=== PATIENT | female | born 1980 | race Caucasian/White ===

== ENCOUNTER → 2016-07-08 | Outpatient (CLI) | payer BC ==
[~2016-07-08] MED LIST: DOCU-94 PO; MTR600X PO; OXYC-57 PO; PRENTAB26 PO
[2016-07-08 11:28] LABS: HEMATOCRIT 34.9 % (37-47)
[2016-07-08 11:40] LABS: URINE APPEARANCE CLEAR (CLEAR); URINE BILIRUBIN NEG (NEG); URINE COLOR YELLOW; URINE EPITHELIAL CELL AUTO >30 /lpf (0-5); URINE NITRITE NEG (NEG); URINE PH 5.5 (4.5-7.5); URINE SPECIFIC GRAVITY 1.011 (1.000-1.030); UROBILINOGEN NEG (NEG)
[2016-07-08 11:42] LABS: MANUAL MICROSCOPIC REQUIRED? NO; REVIEW REQ? NO
[2016-07-08 12:11] LABS: GTGD 50 Grams
== END | disposition home or self-care (01) ==
LOC: C.LAB1850 09:09
PROVIDERS: ATTEND Obstetrics & Gynecology
DX: O44.03 Complete placenta previa NOS or without hemorrhage, third trimester (principal)

== ENCOUNTER 2016-08-06 14:39 | Outpatient (CLI) | payer BC ==
[~2016-08-06] VITALS: Ht 160 cm; Wt 99.0 kg
[~2016-08-06 14:39] MED LIST changes: -DOCU-94 PO; -MTR600X PO; -OXYC-57 PO
[2016-08-06 16:06] LABS: HEMATOCRIT 36.2 % (37-47); MEAN CELL VOLUME 88.7 fL (80-100); MEAN CORPUSCULAR HEMOGLOBIN 30.4 pg (25-34); MEAN CORPUSCULAR HGB CONC 34.3 g/dl (32-36); MEAN PLATELET VOLUME 9.3 fL (7.4-10.4); PLATELET COUNT 233 K/uL (130-400); RED BLOOD COUNT 4.08 M/uL (4.2-5.4); WHITE BLOOD COUNT 13.44 K/uL (4.8-10.8)
[2016-08-06] MEDS ORDERED: BETAMETH SOD PHOS/ACETATE IA 6 MG/ML IM SCH (16:15)
--- NOTE | 2016-08-06 16:23 | Discharge Instructions ---
Discharge Instructions Date of Service Aug 06, 2016. Admission Reason for Admission: Comp Previa With Bleeding 33 Weeks Discharge Discharge Diagnosis / Problem: Placenta previa Discharge Goals Goal(s): Continuing OB care Activity Recommendations Activity Limitations: per Instructions/Follow-up section . Instructions / Follow-Up Instructions / Follow-Up ACTIVITY RECOMMENDATIONS: See Labor Sheet. SPECIAL CARE INSTRUCTIONS: Call Doctor if: * Regular contractions every 5 minutes or greater than 6 contractions in one hour. * Bleeding * Water breaks or is leaking * Decreased movement * Fever >100.4 degrees F * Pain not relieved by routine measures or pain medication ordered. FOLLOW UP VISIT: Return to Labor and Delivery on August 08 1599 for second steroid injection. . Follow-up Visit with: When: Current Hospital Diet Patient's current hospital diet: Discharge Diet Recommended Diet: Regular OB Diet Pending Studies Studies pending at discharge: no Medical Emergencies . Who to Call and When: Medical Emergencies: If at any time you feel your situation is an emergency, please call 911 immediately. . Non-Emergent Contact Non-Emergency issues call your: Hepatology Physician . . "Provider Documentation" section prepared by Wood Roach. VTE Core Measure Inpt VTE Proph given/why not?: Treatment not indicated
[2016-08-06] MEDS: LACTATED RINGER'S 1000ML 1,000 ML IV SCH ×2 (16:45→19:25)
[2016-08-06 19:00] VITALS: Ht 160 cm; Wt 99.0 kg
[2016-09-09] MEDS ORDERED: DOCU-94 PO (12:17)
[2016-09-12] MEDS ORDERED: MTR600X PO (07:44)
[2016-09-12] MEDS ORDERED: OXYC-57 PO (07:44)
== END 2016-08-06 19:31 | disposition home or self-care (01) ==
LOC: C.LD 14:39 → C.OPB 14:39
PROVIDERS: ATTEND Obstetrics & Gynecology
DX: O44.03 Complete placenta previa NOS or without hemorrhage, third trimester (principal); Z3A.33 33 weeks gestation of pregnancy

== ENCOUNTER 2016-08-07 16:31 | Outpatient (CLI) | payer BC ==
[2016-08-07] MEDS ORDERED: NURSING VERBAL MED ORDER ONE (16:45)
[2016-08-07] MEDS ORDERED: BETAMETH SOD PHOS/ACETATE IA 6 MG/ML IM ONE (16:45)
--- NOTE | 2016-08-10 11:19 | EDITING REQUIRED CODING QUERY ---
DIAGNOSIS NEEDED To promote full compliance with coding requirements relating to patient care, physician participation is requested in all cases of supervisor small appliance assembly uncertainty. Please assist us with the question(s) below: Coding Question: The patient received care in labor and delivery on 08/07/16 as noted within the record. Please document the diagnosis that is being addressed by the medication/treatment. Provider Response: DIAGNOSIS: Complete placenta previa with bleeding WEEKS GESTATION: 32weeks gestation Thank you for your assistance, Sadie Malcolm - Fire Patroller
[2016-09-09] MEDS ORDERED: DOCU-94 PO (12:17)
== END 2016-08-07 16:50 | disposition home or self-care (01) ==
LOC: C.OPB 16:31 → C.LD 16:32 → C.OPB 16:50
PROVIDERS: ATTEND Obstetrics & Gynecology
DX: O44.13 Complete placenta previa with hemorrhage, third trimester (principal); Z3A.32 32 weeks gestation of pregnancy

== ENCOUNTER → 2016-09-02 | Outpatient (CLI) | payer BC ==
[~2016-09-02] MED LIST changes: +DOCU-94 PO; +MTR600X PO; +OXYC-57 PO
== END | disposition home or self-care (01) ==
LOC: C.LABSPEC 17:35
PROVIDERS: ATTEND Obstetrics & Gynecology
DX: Z34.83 Encounter for supervision of other normal pregnancy, third trimester (principal)

== ENCOUNTER 2016-09-09 13:04 | Inpatient (IN) | payer BC ==
[2016-09-09] VITALS (10 sets, daily range): BP systolic 115–133; BP diastolic 64–79; PULSE 74–83; TEMP 36.6–37.2; O2SAT 98–100; Ht 160 cm; Wt 101.4 kg
[~2016-09-09] VITALS: Ht 160 cm; Wt 101.4 kg
--- NOTE | 2016-09-09 12:47 | PAT Medication Instructions ---
Service Date September 09, 2016. Current Home Medication List Docusate Sodium (Colace), 1 CAP PO HS Multivit/Min/Iron/Fol Ac/Pren ( Vitamin), 1 TAB PO HS Medication Instructions For Your Scheduled Surgery - Take the following medications as scheduled the night before surgery: Docusate Sodium (Colace), 1 CAP PO HS Multivit/Min/Iron/Fol Ac/Pren ( Vitamin), 1 TAB PO HS Nothing to eat or drink after midnight If you have any questions please call us at [phone] or [phone] or [phone]
[2016-09-09 13:01] LABS: BASO % 0.1 %; BASO ABS # 0.01 K/uL (0-0.2); COMPLETE YES; EOS % 0.5 %; HEMATOCRIT 35.5 % (37-47); IG% 0.3 %; LYMPH % 16.8 %; LYMPH ABS # 1.73 K/uL (1.2-3.4); MEAN CELL VOLUME 89.9 fL (80-100); MEAN CORPUSCULAR HEMOGLOBIN 30.9 pg (25-34); MEAN CORPUSCULAR HGB CONC 34.4 g/dl (32-36); MEAN PLATELET VOLUME 9.2 fL (7.4-10.4); MONO % 8.4 %; NEUT % 73.9 %; PLATELET COUNT 228 K/uL (130-400); RED BLOOD COUNT 3.95 M/uL (4.2-5.4); WHITE BLOOD COUNT 10.32 K/uL (4.8-10.8)
[~2016-09-09 13:04] MED LIST changes: +CEFAZOLIN IV 2,000 MG in DEXTROSE 5% 50ML 50 ML IV SCH; -MTR600X PO; -OXYC-57 PO
[2016-09-09 13:09] LABS: URINE APPEARANCE CLEAR (CLEAR); URINE BILIRUBIN NEG (NEG); URINE COLOR YELLOW; URINE EPITHELIAL CELL AUTO >30 /lpf (0-5); URINE NITRITE NEG (NEG); URINE SPECIFIC GRAVITY 1.015 (1.000-1.030); UROBILINOGEN NEG (NEG)
[2016-09-09 13:19] LABS: MANUAL MICROSCOPIC REQUIRED? NO; REVIEW REQ? NO
[2016-09-09] MEDS ORDERED: LACTATED RINGER'S 1000ML 1,000 ML IV SCH ×2 (13:25→15:14)
[2016-09-09] MEDS ORDERED: CITRIC ACID/SODIUM CITRATE 15 ML UDC PO SCH (13:30)
[2016-09-09] MEDS ORDERED: METHYLERGONOVINE MALEATE 0.2 MG/ML AMP ONE (13:43)
[2016-09-09] MEDS ORDERED: CARBOPROST TROMETHAMINE 250 MCG/ML AMP ONE (13:43)
[2016-09-09] MEDS ORDERED: OXYTOCIN INJ 10 UNITS/ML VIAL ONE ×4 (13:43→14:51)
[2016-09-09] MEDS ORDERED: MoRPHine SULFATE PF 1 MG/ML 10 ML AMP/VIAL ONE (14:05)
[2016-09-09] MEDS ORDERED: FENTANYL CITRATE INJ 50 MCG/1 ML 2 ML VIAL ONE (14:05)
--- NOTE | 2016-09-09 14:17 | HISTORY & PHYSICAL EXAMINATION ---
DATE OF ADMISSION: 09/09/2016 PREOPERATIVE DIAGNOSES: 1. Intrauterine at 37 and 4/7 weeks. 2. Complete posterior placenta previa. 3. Vaginal bleeding. HISTORY OF PRESENT ILLNESS: The patient is a 35-year-old 2, para 1-0-0-1 whose EDC is 09/26/2016. She was discovered to have a complete placenta previa at 20 weeks and this has persisted throughout her and was confirmed on the 36-week ultrasound. The patient had a scheduled delivery for tomorrow, but when she was down in the preoperative anesthesia area she went to the bathroom and had a large gush of blood coloring the toilet red. She notes no pain. She notes no problems with the baby. She feels overall very well. The has been otherwise uncomplicated. On evaluation, the patient has gordo red vaginal bleeding. It is not active when looking at the cervix, but it covers the perineum, her underwear and the toilet. The baby is reassuring and I have recommended that we proceed with delivery. She is agreeable. 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 This is her second . She denies abnormal Pap smears or sexually transmitted diseases. ALLERGIES: No known drug allergies. MEDICATIONS: vitamins. PAST MEDICAL HISTORY: She is healthy, denying thyroid disease, asthma, heart disease, heart murmur, diabetes, kidney or liver problems. She has had the chickenpox and shingles. PAST SURGICAL HISTORY: [place] teeth removal. SOCIAL HISTORY: The patient denies tobacco, alcohol or drugs. Lives with her spouse and son. PHYSICAL EXAMINATION: GENERAL: This is a well-developed, well-nourished white female in no acute distress who is a little bit upset. VITAL SIGNS: Afebrile, vital signs stable. ABDOMEN: Soft, gravid and nontender. EXTREMITIES: Show trace edema. PELVIC EXAMINATION: On sterile speculum exam, there is some bright red blood and mucus mixed in the vaginal vault. The perineum is covered with blood. I asked the patient to cough and I saw no obvious gushing blood from the cervix. The cervix appears visually maybe 1 cm dilated with some length. External monitor shows the baby to be in the 100-125 with moderate variability, accels to the 160s, no decels. Tocodynamometer shows irritability. LABORATORY DATA: Blood type is A negative, antibody negative, rubella immune, RPR nonreactive, hepatitis B negative, HIV negative, chlamydia and gonorrhea negative. Glucose test x2 negative, GBS negative. ASSESSMENT: The patient is a 35-year-old white female 2, para 1-0-0-1 at 37 and 4/7 weeks with known complete posterior placenta previa confirmed on ultrasound at 36 weeks. She has had a bright red gush of bleeding that seemed significant enough that she came up here, her underwear showed a large plum-sized spot of bright red blood. On sterile speculum exam the perineum is covered with blood and there is blood in the vault, although there is no active bleeding from the cervix noted right now. heart tones are category 1. I have recommended that we proceed with delivery as we were going to do so yesterday. Her labs are already back. Her H\T\H is stable. Her platelets are 288,000 and she is being typed and crossed for 2 units. The risks of the procedure were discussed with the patient including the risks of anesthesia, bleeding requiring transfusion, infection, poor wound healing, damage to surrounding structures including bowel, bladder, vessels, nerves and ureters with need for further surgery, hospitalization or intervention. We also discussed the possibility that if we could not get her bleeding to stop that she may require hysterectomy. The patient understands the risk of this and agrees to proceeding with surgery now. She has had nothing to eat or drink since 9:00. Anesthesia, the main OR, pediatrics are all aware. ELIDA
[2016-09-09] MEDS ORDERED: PHENYLEPHRINE 100MCG/ML 5ML SYR ONE (14:44)
[2016-09-09] MEDS ORDERED: EpHEDrine SULFATE 50MG/5ML SYR ONE (14:44)
[2016-09-09] MEDS ORDERED: ONDANSETRON INJ 2 MG/ML 2 ML VIAL ONE (14:44)
[2016-09-09] MEDS ORDERED: DiphenhydrAMINE HCL 50 MG/ML VIAL ONE (14:51)
[2016-09-09] MEDS ORDERED: NALOXONE HCL INJ 1 MG in SODIUM CHLORIDE 0.9% 1000ML 1,000 ML IV PRN ×4 (15:01)
[2016-09-09] MEDS ORDERED: LACTATED RINGER'S 1000ML 500 ML IV PRN (15:01)
[2016-09-09] MEDS ORDERED: NALOXONE HCL INJ 0.08 MG in SYRINGE 1.8 ML IV PRN (15:01)
[2016-09-09] MEDS ORDERED: SODIUM CHLORIDE 0.9% 1000ML 1,000 ML IV PRN (15:01)
[2016-09-09] MEDS ORDERED: OXYTOCIN INJ 20 UNITS in LACTATED RINGER'S 1000ML 1,000 ML IV SCH (15:14)
[2016-09-09] MEDS ORDERED: DC PCA PRN (15:15)
[2016-09-09] MEDS ORDERED: SUPERCREAM 0.870 % 15GM JAR EXT PRN (15:15)
[2016-09-09] MEDS ORDERED: HYDROCORTISONE ACETATE 25 MG SUPP PR PRN (15:15)
[2016-09-09] MEDS ORDERED: NO NARCOTICS OR SEDATIVES SCH (15:15)
[2016-09-09] MEDS ORDERED: LANOLIN OINT EXT PRN ×2 (15:15)
[2016-09-09] MEDS ORDERED: PROMETHAZINE HCL INJ 25 MG in SODIUM CHLORIDE 0.9% 50ML 50 ML IV PRN (15:15)
[2016-09-09] MEDS ORDERED: BENZOCAINE 20% AER SPR 82.5 GM CAN EXT PRN (15:15)
[2016-09-09] MEDS ORDERED: DIPHTHERIA/TETANUS/PERTUSSIS 0.5 ML SYR/VIAL IM. ONE (15:15)
[2016-09-09] MEDS ORDERED: KETOROLAC TROMETHAMINE 30 MG/ML VIAL IV. PRN (15:15)
[2016-09-09] MEDS ORDERED: NALOXONE HCL 0.4 MG/1 ML VIAL/CARP IV PRN (15:15)
[2016-09-09] MEDS ORDERED: EpHEDrine SULFATE INJ 50 MG/ML AMP IV PRN (15:15)
[2016-09-09] MEDS ORDERED: ONDANSETRON INJ 2 MG/ML 2 ML VIAL IV PRN (15:15)
[2016-09-09] MEDS ORDERED: NALBUPHINE HCL INJ 10 MG/ML AMP IV PRN (15:15)
[2016-09-09] MEDS ORDERED: DiphenhydrAMINE HCL 50 MG/ML VIAL IV PRN (15:15)
[2016-09-09] MEDS ORDERED: MoRPHine SULFATE PF 1 MG/ML 10 ML AMP/VIAL EPI PRN (15:15)
--- NOTE | 2016-09-09 15:24 | [facility] Post Operative Brief Note ---
Immediate Operative Summary Operative Date September 09, 2016. Pre-Operative Diagnosis Posterior Complete Previa IUP at 37 4/7 vaginal bleeding Post-Operative Diagnosis same as pre-operative Procedure(s) Performed Primary Low Transverse Caesarean Section Surgeon Dr. Cammie Koch Channel Executive Surgeon(s) Dr. Lalita Musa Estimated Blood Loss 800ml Fluids (cc crystalloids) 2100cc Specimens SPECIMEN: A: placenta for exam Drains rojas Anesthesia spinal Complication(s) None Disposition Recovery Room / PACU
--- NOTE | 2016-09-09 16:11 | Anesthesiology Progress Note ---
Anesthesia Post Op Note Date & Time September 09, 2016 at 16:10 Vital Signs Pain Intensity: 0 Vital Signs Past 12 Hours Date Time Temp Pulse Resp B/P Pulse Ox O2 Delivery O2 Flow Rate FiO2 09/09/16 16:00 36.6 71 20 136/84 100 Nasal Cannula 2 09/09/16 15:50 36.6 71 20 133/73 100 Nasal Cannula 2 09/09/16 15:40 36.6 64 20 128/76 100 Nasal Cannula 2 09/09/16 15:30 64 20 121/72 100 Nasal Cannula 2 09/09/16 15:20 72 20 112/80 100 Nasal Cannula 2 09/09/16 15:14 36.2 68 20 129/69 100 Nasal Cannula 2 Notes Mental Status: alert / awake / arousable, participated in evaluation Pt Amnestic to Procedure: No Nausea / Vomiting: adequately controlled Pain: adequately controlled Airway Patency, RR, SpO2: stable & adequate BP & HR: stable & adequate Hydration State: stable & adequate Neuraxial Anesthesia: was administered, sensory block is resolving Anesthetic Complications: no major complications apparent
[2016-09-09] MEDS: SIMETHICONE 80 MG CHEW PO SCH ×2 (17:28→19:30)
[2016-09-09] MEDS: DOCUSATE SODIUM 100 MG CAP PO SCH (19:30)
[2016-09-10] VITALS (13 sets, daily range): BP systolic 100–117; BP diastolic 52–73; PULSE 64–79; TEMP 36.8–37.2; O2SAT 97–100
[2016-09-10 06:50] LABS: BASO % 0.1 %; BASO ABS # 0.01 K/uL (0-0.2); COMPLETE YES; EOS % 0.2 %; HEMATOCRIT 32.2 % (37-47); IG% 0.2 %; LYMPH % 10.2 %; LYMPH ABS # 1.34 K/uL (1.2-3.4); MEAN CELL VOLUME 89.7 fL (80-100); MEAN CORPUSCULAR HEMOGLOBIN 30.6 pg (25-34); MEAN CORPUSCULAR HGB CONC 34.2 g/dl (32-36); MONO % 9.6 %; NEUT % 79.7 %; PLATELET COUNT 162 K/uL (130-400); RED BLOOD COUNT 3.59 M/uL (4.2-5.4); WHITE BLOOD COUNT 13.13 K/uL (4.8-10.8)
--- NOTE | 2016-09-10 07:06 | OPERATIVE REPORT ---
DATE OF OPERATION: 09/09/2016 PREOPERATIVE DIAGNOSES: 1. Intrauterine at 37 and 4/7th weeks. 2. Posterior complete previa. 3. Vaginal bleeding. POSTOPERATIVE DIAGNOSES: Same. PROCEDURE: Primary low transverse section. SURGEON: Dr. Cammie Koch. CURRICULUM COUNSELOR: Lalita Musa MD ESTIMATED BLOOD LOSS: 800 mL. FINDINGS: Viable female infant in cephalic presentation. Normal tubes and ovaries bilaterally. There was a small approximately 3-cm anterior subserosal fibroid noted. The placenta was completely covering the cervical os and we did go through it in the lower uterine segment anteriorly as well. Apgars and weight are pending at the time of this dictation. FLUIDS: 2100 mL. URINE OUTPUT: 220 mL of clear yellow urine drained from the bladder at the end of the procedure. INDICATIONS: Desiree is a 35-year-old 2, para 1-0-0-1, who had a known complete posterior placenta previa since 20 weeks. This was reconfirmed at 36 weeks ultrasound. She was scheduled for delivery tomorrow; however, when she presented to the preoperative anesthesia area for evaluation, she went to the bathroom and had large gush of blood. On sterile speculum exam, there was blood covering the perineum and blood in the vault, although no active bleeding was noted from the cervix at that time. heart tones were category 1. COMPLICATIONS: None. DRAINS: Gleason. DISPOSITION: To recovery room in stable condition. DESCRIPTION OF PROCEDURE: The patient was taken to the main operating room and she was prepared from surgery. Fetus was category 1 prior to disconnecting and coming down to the main OR. She was seated on the operating table, where spinal anesthetic was placed. She was placed in the dorsal lithotomy position in [facility]. She was tilted to her left side slightly. A Gleason catheter was placed sterilely and she was prepped and draped in normal sterile fashion. Anesthetic was tested and found to be adequate. A time-out was then had identifying correct patient, procedure, positioning, preoperative antibiotics and allergies. A Pfannenstiel skin incision was made with the knife and taken down to the underlying layer of fascia with the knife. Bleeding was attended to with Bovie electrocautery. The fascia was incised with electrocautery, first to the left and then to the right. The anterior edge of the fascial incision was grasped, elevated and the underlying layer of rectus muscle was taken off bluntly with scissors and cautery. In a similar fashion, the inferior edge of the fascial incision was taken off bluntly and with scissors. The muscles were bluntly in the midline. The peritoneum was entered bluntly. The incision was stretched. The bladder blade was placed. The vesicouterine peritoneum was identified, grasped with a snap, incised with scissors and the bladder flap was created digitally. The hysterotomy incision was made with the knife. This was taken out laterally on both sides with bandage scissors. Placenta was immediately visible. We were able to essentially just bury through the placenta, get the amniotic sac, and make an amniotomy bluntly for clear fluid. The head was grasped with the drawbench operator's hands and delivered through the hysterotomy incision atraumatically. There was no nuchal cord. The rest of the infant was then delivered without difficulty. The nose and mouth were bulb suctioned. There was a cry on the field. The cord was clamped and cut. The was handed off to waiting compliance mgr for drying and attention. Cord blood and segment were obtained. The placenta was manually extracted. The uterus was exteriorized and cleared of all clot and debris with moistened laparotomy sponges. There were no active bleeding areas in the lower uterine segment that were identified. The hysterotomy incision was then reapproximated in 2 layers of 0 Vicryl, the first in a running locked layer and the second in an imbricating layer. Several [id number] sutures were needed for hemostasis, but then hemostasis was noted to be excellent. The lower uterine segment was carefully evaluated and visualized throughout this and there was no ballooning. The uterus firmed up with the use of dilute IV Pitocin and 1 dose of IM Methergine. The posterior cul-de-sac was irrigated and cleared of all clot and debris. The hysterotomy incision was again inspected and found to be hemostatic. It was reanteriorized. The incision was irrigated. Clot and debris were cleared. The hysterotomy incision was then noted to be hemostatic. The muscles were reapproximated in the midline using several interrupted sutures of 0 Vicryl. The fascia was then reapproximated meeting in the midline with 0 Vicryl. The subcuticular tissue was irrigated with warm normal saline. Bleeding was attended to with Bovie electrocautery. The subQ tissue was reapproximated with horizontal mattress sutures of 2-0 plain gut and then, the skin was closed with 4-0 Vicryl in subcuticular fashion. All sponge, lap and needle counts were correct x2. The patient tolerated the procedure well. She was taken to the recovery room out the main OR in stable condition. I attest to the content of the Intraoperative Record and any orders documented therein. Any exceptions are noted below. ELIDA
--- NOTE | 2016-09-10 07:13 | Progress Note ---
Subjective September 10, 2016. Subjective conversation w/ patient, physical exam, lab review Ambulation: limited ambulation Voiding: rojas catheter in place Passing Gas: Yes Diet Tolerance: Regular Diet Lochia: Small Feeding Type: Breast Feeding Pain: improves with med Comment: Patient was seen at the bedside. No acute event overnight. Review of Systems Constitutional: No fever Respiratory: No cough, No shortness of breath Cardiac: No chest pain Breast: No breast lump Abdomen: No nausea, No pain, No vomiting Denies headache Objective Vital Signs Date Time Temp Pulse Resp B/P Pulse Ox O2 Delivery O2 Flow Rate FiO2 09/10/16 05:45 18 97 09/10/16 04:45 16 98 09/10/16 03:45 37.2 79 18 110/66 99 Room Air 09/10/16 03:45 18 99 09/10/16 02:45 18 100 09/10/16 01:45 18 99 09/10/16 00:45 16 99 09/09/16 23:45 18 98 09/09/16 23:45 98 Room Air 09/09/16 23:45 37.2 83 18 115/64 98 Room Air 09/09/16 23:00 18 100 09/09/16 22:15 18 99 09/09/16 21:15 16 100 09/09/16 20:15 18 100 09/09/16 19:15 16 100 09/09/16 19:15 37.0 81 16 133/76 100 Room Air 09/09/16 18:15 20 99 09/09/16 18:15 36.9 83 20 120/75 99 Room Air 09/09/16 17:15 18 100 09/09/16 17:15 36.6 18 126/76 100 Room Air 09/09/16 16:45 36.7 74 16 126/79 100 Room Air 09/09/16 16:15 98 Room Air 09/09/16 16:15 18 98 09/09/16 16:15 37.0 77 18 132/67 98 Room Air 09/09/16 16:15 98 Room Air 09/09/16 16:00 36.6 71 20 136/84 100 Nasal Cannula 2 09/09/16 15:50 36.6 71 20 133/73 100 Nasal Cannula 2 09/09/16 15:40 36.6 64 20 128/76 100 Nasal Cannula 2 09/09/16 15:30 64 20 121/72 100 Nasal Cannula 2 09/09/16 15:20 72 20 112/80 100 Nasal Cannula 2 09/09/16 15:14 36.2 68 20 129/69 100 Nasal Cannula 2 Physical Exam General Appearance: WELL-APPEARING, WD/WN, NO APPARENT DISTRESS Respiratory/Chest: chest non-tender, lungs clear, normal breath sounds, no respiratory distress Cardiovascular: regular rate, rhythm Abdomen: normal bowel sounds, non tender, soft Fundus: Firm, Relation to Umbilicus (1cm below) Incision Description: Clean, Dry & Intact Extremities: non-tender, no pedal edema, no calf tenderness Laboratory Results Last 24 Hours Test 09/09/16 12:40 09/10/16 06:36 White Blood Count 10.32 K/uL 13.13 K/uL Red Blood Count 3.95 M/uL 3.59 M/uL Hemoglobin 12.2 g/dL 11.0 g/dL Hematocrit 35.5 % 32.2 % Mean Corpuscular Volume 89.9 fL 89.7 fL Mean Corpuscular Hemoglobin 30.9 pg 30.6 pg Mean Corpuscular Hemoglobin Concent 34.4 g/dl 34.2 g/dl Platelet Count 228 K/uL 162 K/uL Mean Platelet Volume 9.2 fL 9.0 fL Neutrophils (%) (Auto) 73.9 % 79.7 % Lymphocytes (%) (Auto) 16.8 % 10.2 % Monocytes (%) (Auto) 8.4 % 9.6 % Eosinophils (%) (Auto) 0.5 % 0.2 % Basophils (%) (Auto) 0.1 % 0.1 % Neutrophils # (Auto) 7.63 K/uL 10.48 K/uL Lymphocytes # (Auto) 1.73 K/uL 1.34 K/uL Monocytes # (Auto) 0.87 K/uL 1.26 K/uL Eosinophils # (Auto) 0.05 K/uL 0.02 K/uL Basophils # (Auto) 0.01 K/uL 0.01 K/uL RDW Standard Deviation 46.2 fL 46.9 fL RDW Coefficient of Variation 14.0 % 14.1 % Immature Granulocyte % (Auto) 0.3 % 0.2 % Immature Granulocyte # (Auto) 0.03 K/uL 0.02 K/uL Medications Current Inpatient Medications Medications (Trade) Dose Ordered Sig/River Route Start Time Stop Time Status Last Admin Dose Admin Naloxone HCl (Narcan Inj) 0.1 mg UD PRN IV 09/09/16 15:15 09/10/16 09:15 Diphenhydramine HCl (Benadryl Inj) 25 mg Q6H PRN IV 09/09/16 15:15 09/10/16 09:15 Nalbuphine HCl 5 mg 5 mg Q10M PRN IV 09/09/16 15:15 09/10/16 09:15 Naloxone HCl/ Sodium Chloride (Narcan Inj/Nss 1000ml) 1,002.5 ml @ 50 mls/hr Q20H3M PRN IV 09/09/16 15:01 09/10/16 09:15 Ondansetron HCl 4 mg 4 mg Q6H PRN IV 09/09/16 15:15 09/10/16 09:15 Promethazine HCl 25 mg/Sodium Chloride 51 ml @ 200 mls/hr Q6H PRN IV 09/09/16 15:15 09/10/16 09:15 Naloxone HCl/ Sodium Chloride (Narcan Inj/Nss 1000ml) 1,002.5 ml @ 50 mls/hr Q20H3M PRN IV 09/09/16 15:01 09/10/16 09:15 Ketorolac Tromethamine (Toradol Inj) 30 mg Q6H PRN IV. 09/09/16 15:15 09/10/16 09:15 Miscellaneous Information (Dc Intraspinal Morphine) 1 ea 0915 ONCE N/A 09/10/16 09:15 09/10/16 09:16 Miscellaneous Information 1 ea 1 ea UD N/A 09/09/16 15:15 09/10/16 09:15 Naloxone HCl/ Syringe (Narcan Inj/ Syringe) 2 ml @ 1 mls/min Q2M PRN IV 09/09/16 15:01 09/10/16 09:15 Ephedrine Sulfate 10 mg 10 mg Q5M PRN IV 09/09/16 15:15 09/10/16 09:15 Oxytocin 20 units/ Lactated Ringer's 1,002 ml @ 125 mls/hr Q8H1M IV 09/09/16 15:14 10/09/16 15:13 09/09/16 22:16 125 MLS/HR Lactated Ringer's (Lr 1000ml) 1,000 ml @ 125 mls/hr Q8H IV 09/09/16 15:14 10/09/16 15:13 09/10/16 05:49 125 MLS/HR Ketorolac Tromethamine (Toradol Inj) 30 mg Q6H PRN IV. 09/10/16 09:15 09/15/16 09:14 Meperidine HCl (Demerol Inj) 50 mg Q4H PRN IV 09/10/16 09:15 09/24/16 09:14 Meperidine HCl (Demerol Inj) 75 mg Q4H PRN IV 09/10/16 09:15 09/24/16 09:14 Oxycodone/ Acetaminophen (Percocet 5-325mg Tab) 1 tab Q4H PRN PO 09/10/16 09:15 09/24/16 09:14 Oxycodone/ Acetaminophen (Percocet 5-325mg Tab) 2 tab Q4H PRN PO 09/10/16 09:15 09/24/16 09:14 Ibuprofen (Motrin Tab) 600 mg Q4H PRN PO 09/09/16 15:15 10/09/16 15:14 Prenat Multivit/ [place]/Iron/Folic Ac ( Vitamin Tab) 1 tab DAILY PO 09/10/16 08:00 10/10/16 07:59 Docusate Sodium (coLACE CAP) 100 mg BID PO 09/09/16 20:00 10/09/16 19:59 09/09/16 19:30 100 MG Cocaine HCl (Supercream 0.870% Cr) BID PRN EXT 09/09/16 15:15 09/23/16 15:14 Lanolin (Lanolin Oint) PRN PRN EXT 09/09/16 15:15 10/09/16 15:14 Hydrocortisone Acetate (Anusol Hc Supp) 25 mg BID PRN UT 09/09/16 15:15 10/09/16 15:14 Benzocaine (Dermoplast Aero Spr) 1 appln PRN PRN EXT 09/09/16 15:15 10/09/16 15:14 Simethicone (Mylicon Chew Tab) 80 mg QID PO 09/09/16 17:00 10/09/16 16:59 09/09/16 19:30 80 MG Diphenhydramine HCl (Benadryl Cap) 25 mg QID PRN PO 09/10/16 09:15 10/10/16 09:14 Diphenhydramine HCl (Benadryl Inj) 25 mg QID PRN IV 09/10/16 09:15 10/10/16 09:14 Assessment and Plan Post-Op Day#: 1 Continue Routine Care: A/P: This is a 35 y/o female, , s/p . Limited ambulation due to rojas. Plan: - Vitals signs are reviewed and WNL (Tmax 37.2 ) - Last Hgb is 11 - Blood type A-, GBS neg, Rubella Immune - Routine care - Encourage ambulation, monitor and control pain with medication as needed , advance diet as tolerated and monitor lochia - Stool softeners and sitz bath recommended - Encourage breast feeding and educate about breast feeding Resident Physician Supervision Note: I interviewed and examined the patient. Discussed with [Name of resident] and agree with findings and plan as documented in the note. Any exceptions or clarifications are listed here: [None] Documented By: Cammie Koch
[2016-09-10] MEDS: PRENATAL VITAMIN TAB PO SCH (08:05)
[2016-09-10] MEDS: DOCUSATE SODIUM 100 MG CAP PO SCH ×2 (08:05→20:03)
[2016-09-10] MEDS: SIMETHICONE 80 MG CHEW PO SCH ×4 (08:05→20:02)
[2016-09-10] MEDS ORDERED: DiphenhydrAMINE HCL 50 MG/ML VIAL IV PRN (09:15)
[2016-09-10] MEDS ORDERED: OXYCODONE/ACETAMINOPHEN 5-325 TAB PO PRN (09:15)
[2016-09-10] MEDS ORDERED: DC INTRASPINAL MORPHINE ONE (09:15)
[2016-09-10] MEDS ORDERED: KETOROLAC TROMETHAMINE 30 MG/ML VIAL IV. PRN (09:15)
[2016-09-10] MEDS ORDERED: MEPERIDINE HCL 50 MG/ML CARP IV PRN ×2 (09:15)
[2016-09-10] MEDS: IBUPROFEN 600 MG TAB PO PRN ×3 (09:30→20:03)
[2016-09-10] MEDS: OXYCODONE/ACETAMINOPHEN 5-325 TAB PO PRN ×2 (09:31→13:29)
[2016-09-11] VITALS: BP 113/65; PULSE 62; TEMP 36.6
[2016-09-11 06:35] LABS: HEMATOCRIT 29.8 % (37-47)
--- NOTE | 2016-09-11 06:45 | Progress Note ---
Subjective September 11, 2016. Subjective conversation w/ patient, physical exam Ambulation: ambulating normally Voiding: no voiding problems Passing Gas: Yes Diet Tolerance: Regular Diet Lochia: Moderate Feeding Type: Breast Feeding Review of Systems Constitutional: No chills, No fever Respiratory: No cough Cardiac: No chest pain Abdomen: No nausea, No vomiting Objective Vital Signs Date Time Temp Pulse Resp B/P Pulse Ox O2 Delivery O2 Flow Rate FiO2 09/11/16 00:00 Room Air 09/11/16 00:00 36.6 62 18 113/65 Room Air 09/10/16 15:41 36.9 66 18 100/52 Room Air 09/10/16 15:15 36.8 64 18 115/65 97 Room Air 09/10/16 15:15 97 Room Air 09/10/16 12:02 36.8 75 18 117/73 Room Air 09/10/16 09:15 18 99 09/10/16 08:15 18 98 09/10/16 07:45 98 Room Air 09/10/16 07:45 36.8 78 18 115/69 98 Room Air 09/10/16 07:15 18 98 Physical Exam General Appearance: WELL-APPEARING, NO APPARENT DISTRESS Respiratory/Chest: chest non-tender, lungs clear, normal breath sounds, no respiratory distress Cardiovascular: regular rate, rhythm, no edema, no gallop, no murmur Abdomen: non tender, soft Fundus: Firm Incision Description: Clean, Dry & Intact Extremities: no calf tenderness Laboratory Results Last 24 Hours Test 09/11/16 06:23 Hemoglobin 10.0 g/dL Hematocrit 29.8 % Assessment and Plan Post-Op Day#: 2 Continue Routine Care: Recovering normally from Csec for complete previa.
[2016-09-11 07:20] VITALS: BP 125/74; PULSE 66; TEMP 36.8; O2SAT 99
[2016-09-11] MEDS: SIMETHICONE 80 MG CHEW PO SCH ×4 (08:21→20:34)
[2016-09-11] MEDS: DOCUSATE SODIUM 100 MG CAP PO SCH ×2 (08:21→20:34)
[2016-09-11] MEDS: PRENATAL VITAMIN TAB PO SCH (08:21)
[2016-09-11] MEDS: OXYCODONE/ACETAMINOPHEN 5-325 TAB PO PRN (08:22)
[2016-09-11] MEDS: IBUPROFEN 600 MG TAB PO PRN ×2 (08:22→21:48)
[2016-09-11 15:30] VITALS: BP 114/66; TEMP 36.7
[2016-09-12] VITALS: BP 118/70; PULSE 66; TEMP 37
--- NOTE | 2016-09-12 07:42 | Progress Note ---
Subjective September 12, 2016. Subjective conversation w/ patient, physical exam, chart review, lab review, review of studies Ambulation: ambulating normally Voiding: no voiding problems Passing Gas: Yes Diet Tolerance: Regular Diet Lochia: Small Objective Vital Signs Date Time Temp Pulse Resp B/P Pulse Ox O2 Delivery O2 Flow Rate FiO2 09/12/16 00:00 Room Air 09/12/16 00:00 37.0 66 16 118/70 Room Air 09/11/16 15:30 36.7 20 114/66 Room Air 09/11/16 15:30 Room Air Physical Exam General Appearance: WELL-APPEARING Respiratory/Chest: lungs clear Cardiovascular: regular rate, rhythm Abdomen: soft Fundus: Firm Incision Description: Clean, Dry & Intact Extremities: no calf tenderness Assessment and Plan Post-, Post-Op Day#: 3 Continue Routine Care: Home
[2016-09-12] MEDS ORDERED: MTR600X PO (07:44)
[2016-09-12] MEDS ORDERED: OXYC-57 PO (07:44)
--- NOTE | 2016-09-12 07:45 | Discharge Instructions ---
Discharge Instructions Date of Service September 12, 2016. Admission Reason for Admission: Check Vaginal Bleeding Discharge Discharge Diagnosis / Problem: placenta previa Discharge Goals Goal(s): Routine recovery after Activity Recommendations Activity Limitations: per Instructions/Follow-up section . Instructions / Follow-Up Instructions / Follow-Up ACTIVITY RECOMMENDATIONS: * Gradual return to full activity over the next 2-3 weeks. * No lifting - nothing heavier than baby over the next 2-3 weeks. * Do not engage in vigorous exercise, sexual activity or sports until cleared by your physician. * Do not drive or operate any motorized equipment until cleared by your physician. * You may shower/bathe daily. MEDICATIONS: For discomfort or pain, you may use Acetaminophen (Tylenol), Ibuprofen (Advil), or Naproxen (Aleve) following the package directions. For constipation you may use Colace following the package directions. BREAST CARE: If you are not breast feeding: * Wear a supportive bra 24 hours a day for one to two weeks. * Avoid stimulating your breasts and nipples as much as possible during the first few weeks after delivery. * When taking a shower, have the warm water hit your back, not breasts. * When your breasts feel full, apply ice packs. Usually three to four times a day helps ease the discomfort. * Take a mild pain medication (Tylenol / Motrin) when you are uncomfortable. If breast feeding: * Use breast milk to lubricate nipples. Lansinoh cream may be used for sore nipples. You do not need to remove cream prior to breast feeding. If using a different brand of cream, check the label for directions regarding removal of cream prior to nursing. * Wear a supportive bra. * If having problems with breasts or breast feeding, call a community health consultant or your health care provider. SPECIAL CARE INSTRUCTIONS: When you are discharged from the hospital, it is important for you to follow the instructions listed below: * During the first week at home, you should be able to care for yourself and your baby. In addition, the usual light household activities are encouraged. * Limit your activities to the way you feel. Do not try to clean the house or move furniture. Be sensible. * If you actively engage in sports and have done so up until the time of your delivery, you may resume these activities as soon as you feel able. This may take up to one month or even longer. Use good judgment. * Continue to take your vitamins for at least six weeks after the of your baby. * Your diet need not be limited unless you were on a special diet before your delivery. Breast-feeding mothers need around 2500 calories per day and at least 64-80 ounces of fluid per day (8 to 10 glasses). * You should eat foods from the four major food groups. Crash diets or fad diets are to be avoided. Eating lean meats, fresh fruits and vegetables, low-fat dairy products, high fiber foods and a regular exercise program, will help you get back to your pre- weight without putting your health at risk. * Constipation is sometimes a problem after delivery. Take a mild laxative as needed. If breast feeding, Milk of Magnesia is acceptable to use. You may use a suppository or Fleets enema. * A daily shower or tub bath is suggested. Wash incision daily with warm soapy water and pat dry. It doesn't need to be covered unless drainage is present. * A bloody vaginal discharge will usually continue until around four weeks . A small amount of bleeding may continue for as long as six weeks. Vaginal discharge changes from the bright red bleeding after delivery to pink then brownish and finally yellowish-pink before becoming white and disappearing. * Bleeding may increase with activity. Your first period may come in 4-8 weeks. If you are breast feeding, your period may be delayed even longer. * [place] (sex) can begin whenever both you and your partner feel comfortable and do not have any form of genital infection. It is recommended that you wait at least six weeks for internal and external healing to occur. If you have questions, please talk to your health care practitioner. A condom should be used to prevent infection and . * Foreplay, gentle intercourse and lubrication is very important the first several times to prevent pain. A water-based lubricant such as K-Y jelly or Astroglide may be used. * If you have RH negative blood and your baby is RH positive, you will receive RHOGAM by injection prior to discharge. The nurse will give you a card to keep with you that has the date and place that you received RHOGAM after delivery. * During your care, you had a Rubella screen done to check for the presence of rubella antibodies in your blood. If your test was negative, you will receive a Rubella vaccine prior to discharge. This vaccine may cause a fever, soreness at the injection site and flu-like symptoms. If these symptoms persist, notify your health care practitioner. is not advised for one month after a Rubella vaccine. * Verbalizes understanding of car seat law as reviewed with patient nursing. * Car Seat hand-out given and reviewed with patient by nursing. * Shaken baby information reviewed with patient by nursing. Call you doctor if: * Heavy bleeding (saturating several pads an hour) or passing clots the size of your fist. * A fever >101 degrees F (38.3 degrees C) on two occasions four hours apart and /or chills. * Unusual pain in the pelvic or vaginal areas. * Call the doctor for any increased redness, drainage or swelling around the incision and any pain unrelieved by prescribed pain medication. * "Baby Blues" lasting longer than two weeks. If you have any questions or concerns, call your health care practitioner at . FOLLOW UP VISIT: * Please call the office at to schedule a 6 week examination. It is important you keep this appointment. It is important for you to make arrangements for either yearly or twice yearly check-ups thereafter. Current Hospital Diet Patient's current hospital diet: Regular OB Diet Discharge Diet Recommended Diet: Regular OB Diet Procedures Procedures Performed: Primary Low Transverse Caesarean Section Pending Studies Studies pending at discharge: no Medical Emergencies . Who to Call and When: Medical Emergencies: If at any time you feel your situation is an emergency, please call [phone] immediately. . Non-Emergent Contact Non-Emergency issues call your: Clinical Office Technician . . "Provider Documentation" section prepared by [employer]ach. . VTE Core Measure Inpt VTE Proph given/why not?: Ulices Escobar, SCD's
[2016-09-12 08:05] VITALS: BP 118/74; PULSE 81; TEMP 37; O2SAT 98
[2016-09-12] MEDS: PRENATAL VITAMIN TAB PO SCH (08:50)
[2016-09-12] MEDS: SIMETHICONE 80 MG CHEW PO SCH (08:50)
[2016-09-12] MEDS: DOCUSATE SODIUM 100 MG CAP PO SCH (08:50)
[2016-09-12 12:35] VITALS: BP_DIAS 74; PULSE 81; TEMP 37
--- NOTE | 2016-09-20 14:13 | DISCHARGE SUMMARY ---
ADMISSION DIAGNOSES: 1. Intrauterine at 37 and 4/7th weeks. 2. Complete posterior previa. 3. Vaginal bleeding. DISCHARGE DIAGNOSES: Same. PROCEDURE: Primary low transverse section. HISTORY OF PRESENT ILLNESS: The patient is a 35-year-old 2, para 1-0-0-1, whose EDC is 09/26/2016. She was discovered to have a complete previa at 20 weeks and this has persisted throughout her and was confirmed on a recent 36-week ultrasound. The patient had a scheduled section for the day following delivery, but when she was down in the preoperative anesthesia area, she went to the bathroom and had a large gush of blood covering the toilet red. She notes no pain. She notes no problem with the baby. She feels well overall. The has been otherwise uncomplicated. On evaluation, the patient has gordo red vaginal bleeding and it is not active when looking at the cervix, but covers the perineum, her underwear and the toilet. The baby is reassuring and I have recommended that we proceed with delivery. She is agreeable. For the rest of the patient's detailed history and physical, please see her dictated history and physical. ASSESSMENT: The patient is a 35-year-old white female 2, para 1-0-0-1 at 37 and 4/7th weeks with a known complete posterior placenta previa confirmed on ultrasound recently at 36 weeks. She had a recent bright red gush of bleeding that seemed significant enough that she came up here, where she was evaluated and found to have bright red blood covering her underwear, her lower legs and her perineum. Although, there was no active bleeding noted on sterile speculum exam from the vault. Decision was made to proceed directly with delivery. HOSPITAL COURSE: The patient underwent a primary low transverse section with an estimated blood loss of 800 mL to deliver a viable infant. The placenta was a complete previa covering the posterior and anterior wall of the lower uterine segment. It was removed. Hemostasis was noted to be excellent and the procedure was completed without difficulty. The patient's postoperative course was uncomplicated. She tolerated a regular diet, voided without difficulty after the removal of her Gleason catheter, passed gas, tolerated regular diet, and ambulating without difficulty. Her pain was well controlled on oral pain medication. Her postoperative H\T\H was 10.0 and 29.8. She was discharged home on postoperative day #3 with routine discharge instructions, a prescription for Percocet and to follow up in 6 weeks for postoperative visit.
== END 2016-09-12 12:35 | disposition home or self-care (01) | DRG 766 ==
LOC: C.OPB 13:04 → C.LD 13:04 → C.OPB 13:27 → C.LD 13:27 → C.OBG 16:39 → EDSTATUS 09-10 11:30
PROVIDERS: ADMIT Obstetrics & Gynecology; ATTEND Obstetrics & Gynecology
PROC: 10D00Z1 Extraction of Products of Conception, Low, Open Approach (ICD-10-PCS; principal; 2016-09-09 13:30)
DX: O69.4XX0 Labor and delivery complicated by vasa previa, not applicable or unspecified (principal); O26.853 Spotting complicating pregnancy, third trimester; Z3A.37 37 weeks gestation of pregnancy; Z37.0 Single live birth

== ENCOUNTER → 2016-10-19 | Outpatient (CLI) | payer BC ==
[~2016-10-19] MED LIST changes: -CEFAZOLIN IV 2,000 MG in DEXTROSE 5% 50ML 50 ML IV SCH; +MTR600X PO; +OXYC-57 PO
== END | disposition home or self-care (01) ==
LOC: C.PAPS 14:21
PROVIDERS: ATTEND Obstetrics & Gynecology
DX: Z01.419 Encounter for gynecological examination (general) (routine) without abnormal findings (principal)